=== PATIENT | male | born 1940 | race Caucasian/White ===

== ENCOUNTER → 2020-06-06 | Day surgery (SDC) | payer MEDICARE, OTHER ==
[2020-05-31 13:48] LABS: BASOPHILS % 0.5 % (0.0-1.0); EOSINOPHILS # (AUTO) 0.1 (0.0-0.4); EOSINOPHILS % 2.4 % (0.0-6.0); HEMATOCRIT 35.1 % (38.2-49.6); HEMOGLOBIN 10.7 g/dL (14.0-18.0); LYMPHOCYTES # (AUTO) 1.2 (1.0-3.2); LYMPHOCYTES % 20.6 % (18.0-39.1); MEAN CORPUSCULAR HEMOGLOBIN 27.7 pg (28-32); MEAN CORPUSCULAR HGB CONC 30.5 g/dL (31-35); MEAN CORPUSCULAR VOLUME 90.9 fL (81-99); MONOCYTES # (AUTO) 0.8 (0.2-0.8); MONOCYTES % 14.1 % (4.4-11.3); NEUTROPHILS # (AUTO) 3.7 (2.1-6.9); NEUTROPHILS % 62.1 % (38.7-80.0); PLATELET COUNT 253 x10e3/uL (140-360); RED BLOOD COUNT 3.86 x10e6/uL (4.3-5.7); RED CELL DISTRIBUTION WIDTH 14.6 % (11.7-14.4)
[~2020-06-06] MED LIST: ALLEGRA ALLERG180 MG PO; ASPIRIN81 MG PO; ATORVASTATIN CA20 MG PO; CLOPIDOGREL75 MG PO; CYMBALTA30 MG PO; FENOFIBRATE145 MG PO; FERROUS SULFAT325 MG PO; FINASTERIDE5 MG PO; FLAXSEED OIL1000 MG PO; FLOMAX0.4 MG PO; GABAPENTIN300 MG PO; GLYCOPYRROLATE INJ 0.2 MG/ML VIAL ONE; JANUVIA100 MG PO; LEVOCETIRIZINE D5 MG PO; LIDOCAINE HCL 2% LOCAL INJ 5 ML SDV VIAL INJ ONE; METOPROLOL SUCC25 MG PO; MULTI-VITAMIN1 EACH PEG; PRANDIN1 MG PO; PROPOFOL IV EMULSION 10 MG/ML 20 ML VIAL ONE; SEROQUEL25 MG PO; TOUJEO SOL300 UNIT/1 SC; TRUJEO SQ; VASOTEC5 MG PO; VITAMIN C500 MG PO; VITAMIN D32000 UNI1 PO
[2020-06-06 09:45] VITALS: BP 117/66
== END | disposition home or self-care (01) ==
LOC: OR 07:03
PROVIDERS: ATTEND Internal Medicine Gastroenterology
DX: C16.0 Malignant neoplasm of cardia (principal); K29.50 Unspecified chronic gastritis without bleeding; K58.9 Irritable bowel syndrome, unspecified; Z71.3 Dietary counseling and surveillance; E78.5 Hyperlipidemia, unspecified; G47.33 Obstructive sleep apnea (adult) (pediatric); N40.0 Benign prostatic hyperplasia without lower urinary tract symptoms; E11.9 Type 2 diabetes mellitus without complications; I10 Essential (primary) hypertension; E66.9 Obesity, unspecified; I25.810 Atherosclerosis of coronary artery bypass graft(s) without angina pectoris; I25.2 Old myocardial infarction; F32.9 Major depressive disorder, single episode, unspecified; Z79.02 Long term (current) use of antithrombotics/antiplatelets; Z79.82 Long term (current) use of aspirin; Z79.84 Long term (current) use of oral hypoglycemic drugs; Z79.4 Long term (current) use of insulin; Z68.36 Body mass index [BMI] 36.0-36.9, adult; Z95.1 Presence of aortocoronary bypass graft
CPT/HCPCS: 36415 ×2; 43239; 82948; 85025; 93005; J2001; J2704; U0002

== ENCOUNTER 2020-07-31 06:28 | Observation (INO) | payer MEDICARE, OTHER ==
[2020-07-26 12:34] LABS: BASOPHILS % 0.5 % (0.0-1.0); EOSINOPHILS # (AUTO) 0.1 (0.0-0.4); EOSINOPHILS % 2.3 % (0.0-6.0); HEMATOCRIT 34.6 % (38.2-49.6); HEMOGLOBIN 10.4 g/dL (14.0-18.0); LYMPHOCYTES % 17.5 % (18.0-39.1); MEAN CORPUSCULAR HEMOGLOBIN 27.2 pg (28-32); MEAN CORPUSCULAR HGB CONC 30.1 g/dL (31-35); MEAN CORPUSCULAR VOLUME 90.6 fL (81-99); MONOCYTES # (AUTO) 0.8 (0.2-0.8); MONOCYTES % 13.5 % (4.4-11.3); NEUTROPHILS # (AUTO) 3.7 (2.1-6.9); NEUTROPHILS % 65.7 % (38.7-80.0); PLATELET COUNT 277 x10e3/uL (140-360); RED BLOOD COUNT 3.82 x10e6/uL (4.3-5.7); RED CELL DISTRIBUTION WIDTH 14.2 % (11.7-14.4)
[2020-07-26 12:53] LABS: ALANINE AMINOTRANSFERASE 19 IU/L (0-55); ALBUMIN 4.4 g/dL (3.5-5.0); ALBUMIN/GLOBULIN RATIO 1.6 (0.8-2.0); ALKALINE PHOSPHATASE 51 IU/L (40-150); ANION GAP 16.4 mmol/L (8-16); BLOOD UREA NITROGEN 17 mg/dL (7-26); BUN/CREATININE RATIO 15 (6-25); CALCIUM 8.7 mg/dL (8.4-10.2); CARBON DIOXIDE 20 mmol/L (22-29); CHLORIDE 106 mmol/L (98-107); CREATININE, SERUM 1.16 mg/dL (0.72-1.25); EST GLOMERULAR FILTRATION RATE > 60 ML/MIN (60-); GLUCOSE 163 mg/dL (74-118); POTASSIUM 4.4 mmol/L (3.5-5.1); SODIUM 138 mmol/L (136-145)
--- NOTE | 2020-07-26 13:06 | Diagnostic Imaging Report ---
EXAMINATION: CHEST 2 VIEWS INDICATION: Preop for esophageal surgery. Esophageal cancer. ^20200726 ^1250 ^PRE OP COMPARISON: None FINDINGS: TUBES and LINES: Sternal wires. LUNGS: Lungs are well inflated. Lungs are clear. There is no evidence of pneumonia or pulmonary edema. PLEURA: No pleural effusion or pneumothorax. HEART AND MEDIASTINUM: The cardiomediastinal silhouette is unremarkable. BONES AND SOFT TISSUES: No acute osseous lesion. Soft tissues are unremarkable. UPPER ABDOMEN: No free air under the diaphragm. IMPRESSION: No acute thoracic abnormality. Signed by: Dr. Jarvis Jhaveri M.D. on 07/26/2020 1:03 PM
[~2020-07-31] VITALS: Ht 167.6 cm; Wt 96.2 kg
[~2020-07-31 06:28] MED LIST changes: +DIAZEPAM5 MG PO; -GLYCOPYRROLATE INJ 0.2 MG/ML VIAL ONE; -LIDOCAINE HCL 2% LOCAL INJ 5 ML SDV VIAL INJ ONE; +OMEPRAZOLE40 MG PO; -PROPOFOL IV EMULSION 10 MG/ML 20 ML VIAL ONE
[2020-07-31] MEDS ORDERED: BUPIVACAINE 0.25% 30ML SDV INJ ONE (08:53)
[2020-07-31] MEDS ORDERED: LIDOCAINE HCL 1% LOCAL INJ 20 ML VIAL ONE (08:53)
[2020-07-31] MEDS ORDERED: HEPARIN SOD (PORCINE) 5,000 UNIT/ML VIAL ONE (08:54)
[2020-07-31] MEDS ORDERED: SODIUM CHLORIDE 0.9% 500ML 500 ML ONE (08:54)
[2020-07-31] MEDS ORDERED: ONDANSETRON HCL INJ 2MG/ML 2ML 2 MG/ML VIAL IV PRN (11:45)
[2020-07-31] MEDS: INSULIN REGULAR, HUMAN 100 UNIT/1 ML 3ML VIAL SQ SCH ×3 (12:00→23:39)
[2020-07-31] MEDS ORDERED: SEVOFLURANE INHAL SOLN 250 ML PEN BTL ONE (12:30)
[2020-07-31] MEDS ORDERED: DEXAMETHASONE SOD PHOS INJ 4 MG/ML VIAL ONE (12:30)
[2020-07-31] MEDS ORDERED: ONDANSETRON HCL INJ 2MG/ML 2ML 2 MG/ML VIAL ONE (12:30)
[2020-07-31] MEDS ORDERED: LIDOCAINE HCL 2% LOCAL INJ 5 ML SDV VIAL INJ ONE (12:30)
[2020-07-31] MEDS ORDERED: ROCURONIUM BROMIDE 10 MG/ML 5ML VIAL IV ONE (12:30)
[2020-07-31] MEDS ORDERED: CEFAZOLIN SOD 1 GM VIAL ONE (12:30)
[2020-07-31] MEDS ORDERED: PROPOFOL IV EMULSION 10 MG/ML 20 ML VIAL ONE (12:30)
--- OUTSIDE RECORDS SUMMARY | 2020-07-31 12:39 | XMS REPORT | Continuity of Care Document ---
Author Author [facility] Organization [facility] Address [address] [place] [address] Phone Unavailable Care Team Providers Care Pediatric Medical Assistant Name Role Phone Victorino LYLES, Ravi Lin PCP Levar PALACIOS Attphys Unavailable Doctor Unassigned, Name No Attphys Unavailable Johanny Cronin Attphys Eunice Ann MD Attphys Payers Payer Name Policy Type Policy Number Effective Date Expiration Date S ource Problems Condition Name Condition Details Condition Category Status Onset Date Resolution Date Last Treatment Date Treating Clinician Comments Source Esophagitis Esophagitis Disease Active 2017-02-02 00:00:00 Choco Rastafarian Diaphragmatic hernia without obstruction and without g angrene Diaphragmatic hernia without obstruction and without gangrene Disease Active 2017-02-02 00:00:[address] Diverticulosis large intestine w/o perforation or absc ess w/o bleeding Diverticulosis large intestine w/o perforation or abscess w/o bleeding Disease Active 2017-02-02 00:00:00 Elmo madden Rastafarian Internal hemorrhoids Internal hemorrhoids Disease Active 00:00:00 Choco Fan Iron deficiency anemia Iron deficiency anemia Disease Active 2017-02-02 00:00:[address] PTCA Status PTCA Status Active Problem 06/28/2014 Andrew Esparza Problem Active 2014-06-28 02:51:26 [facility] Kp 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 Problem 06/28/2014 Andrew Esparza Problem Active 20 28-06-14 02:51:26 Cleopatra Goodrich Hypercholesterolemia Hype rcholesterolemia Active Problem 06/28/2014 Andrew Esparza Problem Active 2014-06-28 02:51:26 Cleopatra Goodrich Angina Taisha na Active Problem 06/28/2014 Andrew Esparza Problem Active 2014-06-28 02:51:26 Cleopatra Goodrich 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 Atherosclerosis of [place] arteries of the extremities with intermittent claudication Active Problem 06/28/2014 Andrew Esparza Problem Active 2014-06-28 02:51:26 Yonis Goodrich Encounter for pre-operative cardiovascular clearance Encounter for pre-operative cardiovascular clearance Active Problem 06/28/2014 Andrew Esparza Problem Active 2014-06-28 02:51:26 Cleopatra Goodrich Shortness of breath Shor tness of breath Active Problem 06/28/2014 Andrew Esparza Problem Active 2014-06-28 02:51:26 [facility] Ab[facility] Abno rmal EKG Active Problem 06/28/2014 Andrew Esparza Problem Active 2014-06-28 02:51:26 Cleopatra Goodrich CAD, Graft CAD, Graft Active Problem 06/28/2014 Andrew Esparza Problem Active 2014-06-28 02:51:26 Cleopatra Goodrich HTN, Benign HTN, Benign Active Problem 06/28/2014 Andrew Esparza Problem Active 2014-06-28 02:51:26 Cleopatra Goodrich Allergies, Adverse Reactions, Alerts Allergy Name Allergy Type Status Severity Reaction(s) Onset Date Inacti ve Date Treating Clinician Comments Source No Known Allergies DA Active U 2016-04-20 00:00:00 [facility] N.K.Christiano.A. N.K.D.A. Active Info Not Available 2014-06-06 00:00:00 Cleopatra Goodrich Family History Family Member Diagnosis Comments Start Date Stop Date Source Natural father Heart disease Choco Rastafarian Natural mother Diabetes [facility]ist Natural mother Heart disease Wilhelm Rastafarian Unknown Family Member Family History 2014-06-28 02:51:26 2 02:51:26 [facility] Social History Social Habit Start Date Stop Date Quantity Comments Source History of tobacco use Current smoker Choco Fan Sex Assigned At Katey huston Rastafarian Alcohol intake 2017-02-02 00:00:00 2017-02-02 00:00:00 Current non-drinker of alcohol (finding) Choco Fan Smoking 2014-06-27 00:00:00 2014-06-27 00:00:00 [facility] Smoking Status Start Date Stop Date Source Former smoker 2017-02-02 00:00:00 2017-02-02 00:00:00 Choco Fan Medications Ordered Medication Name Filled Medication Name Start Date Stop Da te Current Medication? Ordering Clinician Indication Dosage Frequency Signature (SIG) Comments Components Source tamsulosin (FLOMAX) 0.4 mg capsule,extended release 24hr 2017-02-02 11:13:27 Yes .4mg QD Take 0.4 mg by mouth daily. Choco Fan DULoxetine (CYMBALTA) 60 MG capsule 2017-02-02 11:13:27 Yes 60mg QD Take 60 mg by mouth daily. Choco Fan QUEtiapine (SEROquel) 50 MG tablet 2017-02-02 11:13:27 Yes 50mg QD Take 50 mg by mouth nightly. Choco garcia glimepiride (AMARYL) 4 MG tablet 2017-02-02 11:13:27 Yes 4mg QD Take 4 mg by mouth daily before breakfast. Kimberly Fan metoprolol tartrate (LOPRESSOR) 25 mg tablet 2017-02-02 11:13:27 Yes 25mg Q.5D Take 25 mg by mouth 2 (two) times a day. Choco Fan enalapril (VASOTEC) 5 MG tablet 2017-02-02 11:13:27 Yes 5mg QD Take 5 mg by mouth daily. Choco Fan ASCORBATE CALCIUM (VITAMIN C ORAL) 2017-02-02 11:13:27 Yes Take by mouth. Choco Fan ferrous sulfate 325 (65 FE) MG tablet 2017-02-02 11:13:27 Y es 325mg QD Take 325 mg by mouth daily with breakfast. Choco Fan aspirin (ECOTRIN) 81 MG enteric coated tablet 2017-02-02 11:13:2 7 Yes 81mg QD Take 81 mg by mouth daily. Sujey Fan multivitamin with minerals tablet 2017-02-02 11:13:27 Yes 1{tbl} QD Take 1 tablet by mouth daily. Choco Shanks st flaxseed oil oil 2017-02-02 11:13:27 Yes Choco Fan CLEMASTINE FUMARATE (ALLERGY RELIEF, CLEMASTINE, ORAL) 2017-02-02 11:13:27 Yes Take by mouth. Choco Harden ethodist coenzyme Q10 200 mg capsule 2017-02-02 11:13:27 Yes 200mg QD Take 200 mg by mouth daily. Choco Fan clopidogrel (PLAVIX) 75 mg tablet 2016-12-10 00:00:00 Yes Choco Fan finasteride (PROSCAR) 5 mg tablet 2016-11-25 00:00:00 Yes Choco Fan atorvastatin (LIPITOR) 40 MG tablet 2016-11-20 00:00:00 Yes Choco Fan Lyrica 2014-06-28 02:51:26 Yes Andrew Jeroudi 1 capsule [facility] Tamsulosin HCl 2014-06-28 02:51:26 Yes Andrew Jeroudi 1 capsule 30 minutes after the same meal each day [facility] Kp Amaryl 2014-06-28 02:51:26 Yes Candelarioamed Jeroudi 1 tablet [facility] Crestor 2014-06-28 02:51:26 Yes Andrew Jeroudi 1 tablet [facility] Metformin HCl 2014-06-28 02:51:26 Yes Candelarioamed Jeroudi 1 tablet [facility] Cymbalta 2014-06-28 02:51:26 Yes Candelarioamed Jeroudi 1 capsule [facility] Clopidogrel Bisulfate 2014-06-28 02:51:26 Yes Andrew Je roudi 1 tablet [facility] Potassium Chloride 2014-06-28 02:51:26 Yes Candelarioamed Jeroudi 1 capsule [facility] Furosemide 2014-06-28 02:51:26 Yes Candelarioamed Jeroudi 1 tablet [facility] Flaxseed Oil 2014-06-28 02:51:26 Yes Candelarioamed Jeroudi 1 tablet [facility] Aspirin Adult Low Strength 2014-06-28 02:51:26 Yes Eyad ed Jeroudi 1 tablet [facility] Zolpidem Tartrate 2014-06-28 02:51:26 Yes Andrew Peted i 1 tablet at bedtime as needed [facility] Finasteride 2014-06-28 02:51:26 Yes Candelarioamed Jeroudi 1 tablet [facility] Centrum Silver 2014-06-28 02:51:26 Yes Andrew Lindobelindalucas as directed [facility] Enalapril 2014-03-15 00:00:00 Yes Andrew Esparza one tab [facility] Vital Signs Vital Name Observation Time Observation Value Comments Source Weight 2014-06-06 21:00:00 [facility] Height 2014-06-06 21:00:00 [facility] Temperature Oral (F) 2014-06-06 21:00:00 96.9 F [facility] Heart Rate 2014-06-06 21:00:00 [facility] Diastolic (mm Hg) 2014-06-06 21:00:00 [facility] [place] Systolic (mm Hg) 2014-06-06 21:00:00 Yonis [facility] [place] Procedures This patient has no known procedures. Plan of Care Planned Activity Planned Date Details Comments Source Future Scheduled Test 2020-07-16 00:00:00 INFLUENZA VACCINE [code = INFLUENZA VACCINE] [facility] Future Scheduled Test 2006 00:00:00 65+ PNEUMOCOCCAL V ACCINE (1 of 2 - PCV13) [code = 65+ PNEUMOCOCCAL VACCINE (1 of 2 - PCV13)] [facility] Future Scheduled Test 1991 00:00:00 SHINGLES VACCINES (#1) [code = SHINGLES VACCINES (#1)] [facility] Encounters Start Date/Time End Date/Time Encounter [facility] ID Source 2020-07-25 00:00:00 2020-07-25 00:00:00 Orders Only D octor Unassigned, [place] [id number] 2020-07-23 09:47:40 2020-07-23 23:59:00 Hospital Encounter [id number] 2020-07-23 09:47:27 2020-07-23 23:59:00 Hospital Encounter [place] [id number] 2020-07-19 00:00:00 2020-07-19 00:00:00 Orders Only D octor Unassigned, [place] [facility] [id number] 2020-07-17 00:00:00 2020-07-17 00:00:00 Orders Only D octor Unassigned, [place] [facility] [id number] 2020-07-17 00:00:00 2020-07-17 00:00:00 Telephone [facility] [id number] 2020-07-15 09:01:22 2020-07-15 09:16:22 Office Visit Tyrese Banks [facility] [id number] 2014-06-06 16:00:00 2014-06-06 16:00:00 [place] [id number] [employer] Results Test Description Test Time Test Comments Results Result Comments Source CHEST 2 VIEWS 2020-07-26 13:02:00 [facility] [address] [place] [address] Patient Name: NANY BERTRAND MR #: [id number] : 1940 Age/Sex: 80/M Req #: [id number] Adm Physician: Ordered by: HERBER PALACIOS MD Report #: [id number] Location: OR Room/Bed: Procedure: [id number] DX/CHEST 2 VIEWS Exam Date: 07/26/20 Exam Time: 1250 REPORT STATUS: Signed EXAMINATION: CHEST 2 VIEWS INDICATION: Preop for esophageal surgery. Esophageal cancer. 20200726 125 PRE OP COMPARISON: None FINDINGS: TUBES and LINES: Sternal wires. LUNGS: Lungs are well inflated. Lungs are clear. There is no evidence of pneumonia or pulmonary edema. PLEURA: No pleural effusion or pneumothorax. HEART AND MEDIASTINUM: The cardiomediastinal silhouette is unremarkable. BONES AND SOFT TISSUES: No acute osseous lesion. Soft tissues are unremarkable. UPPER ABDOMEN: No free air under the diaphragm. IMPRESSION: No acute thoracic abnormality. Signed by: Dr. Daniel Jhaveri M.D. on 07/26/2020 1:03 PM Dictated By: DANIEL JHAVERI MD, MD 1303 Transcribed By: JATIN on 07/26/20 1303 COPY TO: HERBER PALACIOS MD GLUBED 2020-07-03 07:39:00 Test Item GLUBED (test code = GLUBED) 114 MG/DL 70-110 H Performed by certified projection welding machine operator at [facility] [id number] 06:14:00* Test Item Value Reference Range Interpretation Comments GLUBED (test code = GLUBED) 132 MG/DL 70-110 H Performed by certified projection welding machine operator at [facility] Novel Coronavirus 2019 [id number] 04:32:00* Test Item Value Reference Range Interpretation Comments Novel Coronavirus 2019 Inhouse (test code = COVNONPUI) Negative Negative - XR CHEST 2 [id number] 14:26:00 FAX: Rosalinda Gupta MD [phone] [place]: St: PRE FAX: Cindy Panda N Name: NANY BERTRAND [facility] [place] : 1940 Age/S: 80/M [address] [place] [address] Unit #: [id number] Loc: [place] [address] Phys: Cindy Panda NP Acct: [id number] Dis Date: Status: PRE SDC PHONE #: [phone] Exam Date: 07/01/2020 1423 FAX #: [phone] Reason: PREOP- CARCINOMA OF STOMACH EXAMS: CPT CODE: [id number] XR CHEST 2 V 50107 CLINICAL HISTORY: PREOP- CARCINOMA OF STOMACH COMPARISON: April 17, 2016 PA and lateral films of the chest demonstrate sternotomy sutures. Cardiac silhouette is stable. Lung hodgson are clear. No evidence of pneumonia or congestive failure is seen. Regional skeletal structures demonstrate no acute abnormality. IMPRESSION: No evidence of pneumonia or congestive failure is seen. at 1426 Reported and signed by: Chris Arreola M.D. CC: Rosalinda Kelly MD; Cindy Panda NP Technologist: RT Radha(Allen) Trnscrd Date/Time/By: 07/01/2020 (2272) : By: Renetta Orig Print D/T: S: 07/01/2020 (0412) PAGE 1 Signed Report BASIC METABOLIC [id number] 13:31:00* Test Item Value Reference Range Interpretation Comments SODIUM (test code = NA) 139 mEq/L 134-147 N POTASSIUM (test code = K) 4.4 mEq/L 3.4-5.0 N CHLORIDE (test code = CL) 105 mEq/L 100-108 N CARBON DIOXIDE (test code = CO2) 27 mEq/L 21-33 N ANION GAP (test code = GAP) 12 0-20 N GLUCOSE (test code = GLU) 115 mg/dL 70-110 H BLOOD UREA NITROGEN (test code = BUN) 17 mg/dL 7-18 N GLOMERULAR FILTRATION RATE (test code = GFR) 64.6 70-80 L Units of measure = ml/min/1.73 m2 CREATININE (test code = CREAT) 1.1 mg/dL 0.6-1.3 N CALCIUM (test code = CA) 8.5 mg/dL 8.0-10.5 N CBC W/AUTO [id number] 13:01:00* Test Item Value Reference Range Interpretation Comments WHITE BLOOD CELL (test code = WBC) 6.42 x10 3/uL 4.5-11.0 N RED BLOOD CELL (test code = RBC) 3.08 x10 6/uL 4.00-5.60 L HEMOGLOBIN (test code = HGB) 8.8 g/dL 12.5-16.9 L HEMATOCRIT (test code = HCT) 28.8 % 37.5-50.7 L MEAN CELL VOLUME (test code = MCV) 93.5 fL 81.0-99.0 N MEAN CELL HGB (test code = MCH) 28.6 pg 27.0-33.0 N MEAN CELL HGB CONCETRATION (test code = MCHC) 30.6 g/dL 33.0-37. 0 L RED CELL DISTRIBUTION WIDTH CV (test code = RDW) 14.5 % 11.5- 14.5 N RED CELL DISTRIBUTION WIDTH SD (test code = RDW-SD) 49.6 fL 37 .0-54.0 N PLATELET COUNT (test code = PLT) 294 x10 3/uL 150-400 N MEAN PLATELET VOLUME (test code = MPV) 9.0 fL 7.0-9.0 N NEUTROPHIL % (test code = NT%) 68.3 % 56.0-77.0 N IMMATURE GRANULOCYTE % (test code = IG%) 0.6 % 0.0-2.0 N LYMPHOCYTE % (test code = LY%) 17.6 % 14.0-32.0 N MONOCYTE % (test code = MO%) 10.6 % 4.8-9.0 H EOSINOPHIL % (test code = EO%) 2.3 % 0.3-3.7 N BASOPHIL % (test code = BA%) 0.6 % 0.0-2.0 N NUCLEATED RBC % (test code = NRBC%) 0.0 % 0-0 N NEUTROPHIL # (test code = NT#) 4.38 x10 3/uL 2.0-7.6 N IMMATURE GRANULOCYTE # (test code = IG#) 0.04 x10 3/uL 0.00-0.03 H LYMPHOCYTE # (test code = LY#) 1.13 x10 3/uL 1.0-3.8 N MONOCYTE # (test code = MO#) 0.68 x10 3/uL 0.1-0.8 N EOSINOPHIL # (test code = EO#) 0.15 x10 3/uL 0.0-0.2 N BASOPHIL # (test code = BA#) 0.04 x10 3/uL 0.0-0.2 N NUCLEATED RBC # (test code = NRBC#) 0.00 x10 3/uL 0.0-0.1 N MANUAL DIFF REQUIRED (test code = MDIFF) NO
--- OUTSIDE RECORDS SUMMARY | 2020-07-31 12:39 | XMS REPORT | Clinical Summary ---
Author Author [facility] Organization [place] [facility] Address Unknown Phone Unavailable Care Team Providers Care Water Fitness Instructor Name Role Phone Riley Gleason MD PCP Allergies No Known Allergies Medications End Date Status Medication Sig Dispensed Refills Start Date Active atorvastatin (LIPITOR) 40 0 11/20/201 MG tablet 7 Active clopidogrel (PLAVIX) 75 0 12/10/201 mg tablet 7 Active finasteride (PROSCAR) 5 0 11/25/201 mg tablet 7 Active tamsulosin (FLOMAX) 0.4 Take 0.4 mg 0 mg capsule,extended by mouth release 24hr daily. Active DULoxetine (CYMBALTA) 60 Take 60 mg by 0 MG capsule mouth daily. Active QUEtiapine (SEROquel) 50 Take 50 mg by 0 MG tablet mouth nightly. Active glimepiride (AMARYL) 4 MG Take 4 mg by 0 tablet mouth daily before breakfast. Active metoprolol tartrate Take 25 mg by 0 (LOPRESSOR) 25 mg tablet mouth 2 (two) times a day. Active enalapril (VASOTEC) 5 MG Take 5 mg by 0 tablet mouth daily. Active ASCORBATE CALCIUM Take by 0 (VITAMIN C ORAL) mouth. Active ferrous sulfate 325 (65 Take 325 mg 0 FE) MG tablet by mouth daily with breakfast. Active aspirin (ECOTRIN) 81 MG Take 81 mg by 0 enteric coated tablet mouth daily. Active multivitamin with Take 1 tablet 0 minerals tablet by mouth daily. Active flaxseed oil oil 0 Active CLEMASTINE FUMARATE Take by 0 (ALLERGY RELIEF, mouth. CLEMASTINE, ORAL) Active coenzyme Q10 200 mg Take 200 mg 0 capsule by mouth daily. Active Problems Problem Noted Date Esophagitis 02/02/2017 Diaphragmatic hernia without obstruction and without gangrene 02/02/2017 Diverticulosis large intestine w/o perforation or abs cess w/o bleeding 02/02/2017 Internal hemorrhoids 02/02/2017 Iron deficiency anemia 02/02/2017 Family History Medical History Relation Name Comments Heart disease Father Diabetes Mother Heart disease Mother Relation Name Status Comments Father Mother Social History Date Tobacco Use Types Packs/Day Years Used Quit: 1996 Former Smoker Cigarettes Smokeless Tobacco: Never Used Drinks/Week oz/Week Comments Alcohol Use No Sex Assigned at Date Recorded Not on file Industry Job Start Date Occupation Not on file Not on file Not on file Travel End Travel History Travel Start No recent travel history available. Last Filed Vital Signs Not on file Plan of Treatment Health Maintenance Due Date Last Done Comments SHINGLES VACCINES (#1) 1991 65+ PNEUMOCOCCAL VACCINE 2006 (1 of 2 - PCV13) INFLUENZA VACCINE 07/16/2020 Results Not on fileafter 07/31/2019 Insurance Type Payer Benefit Subscriber ID Effective Phone Address Plan / Dates Group [facility] MEDICARE AARP xxxxxxxxx 2016-P MEDICARE resent COMPLETE [facility] Advance Directives For more information, please contact: [phone] Patient Trust Administrator Explanation Type Date Recorded Advance Directives, Living Will and Medical Power of Pot Feeder Advance Directives, 12/31/2016 10:12 AM Living Will and Medical Power of Pot Fe[place] Advance Directives, 01/05/2017 10:15 AM Living Will and Medical Power of Pot Feeder
--- OUTSIDE RECORDS SUMMARY | 2020-07-31 12:39 | XMS REPORT | Continuity of Care Document ---
Author Author Surface [employer] NANY Medel [employer] Address Unknown Phone Unavailable Care Team Providers Care Electronics Parts Sales Representative Name Role Phone [employer] Unavailable Un available Problems Problem Status Onset Date Classification Date Reported Comments Source PTCA Status Active Problem 06/28/2014 Andrew Esparza Mitral valve disorders Active Problem 06/28/2014 Andrew Esparza Hypercholesterolemia Active Problem 06/28/2014 Andrew Esparza Angina Active Problem 06/28/2014 Andrew Esparza Atherosclerosis of [place] arteries of th e extremities with intermittent claudication Active Problem 06/28/2014 Andrew Esparza Encounter for pre-operative cardiovascular clearance Active Problem 06/28/2014 Andrew Esparza Shortness of breath Active Problem 06/28/2014 Andrew Esparza Abnormal EKG Active Problem 06/28/2014 Andrew Esparza CAD, Graft Active Problem 06/28/2014 Andrew Esparza HTN, Benign Active Problem 06/28/2014 Andrew Esparza Medications Medication Details Route Status Patient Instructions Ordering Provider Order Date Source Enalapril one tab orally Active 5 mg orally daily Vilma 03/15/2014 Andrew Esparza Lyrica 1 capsule Orally Active 75 MG Orally BID Vilma [facility] Sylvia Esparza Tamsulosin HCl 1 capsule 30 mi nutes after the same meal each day Orally Active 0.4 MG Orally Once a day Juan R Walters Amaryl 1 tablet Orally Active 4 mg Orally 1 Tablet AM 1/2 tablet PM Vilma Esparza Crestor 1 tablet Orally Active 20 mg Orally Once a day Vilma Palomino angeliqueedda Esparza Metformin HCl 1 tablet Orally Active 1000 mg Orally Twice a day Vilma Esparza Cymbalta 1 capsule Orally Active 60 MG Orally Once a day Vilma Palomino angeliqueedda Esparza Clopidogrel Bisulfate 1 tablet Orally Active 75 mg Orally Once a day Vilma Esparza Potassium Chloride 1 capsule Orally Active 10 MEQ Orally Once a day Andrew Ward Vilma Furosemide 1 tablet Orally Active 80 MG Orally Once a day [facility] angelique Sylvia Lindopilar Flaxseed Oil 1 tablet Orally Active [facility]ID [facility] Petelucas Aspirin Adult Low Strength 1 t ablet Orally Active 81 MG Orally Once a day Candelario Sylvia Vilma Zolpidem Tartrate 1 tablet at bedtime as needed Orally Active 10 MG Orally Once a day Candelario Sylvia Vilma Finasteride 1 tablet Orally Active 5 MG Orally Once a day [facility] angelique Sylvia Petelucas Centrum Silver as directed Orally Active Orally Once a day [place] Andrew Ward Vilma Allergies, Adverse Reactions, Alerts Substance Category Reaction Severity Reaction type Status Date Reported Comments Source N.K.D.A. Adverse Reaction Info Not Available Adverse Reaction Active 06/06/2014 Candelarioangelique Sylvia Esparza Immunizations No Data Provided for This Section Results No Data Provided for This Section Pathology Reports No Data Provided for This Section Diagnostic Reports No Data Provided for This Section Consultation Notes No Data Provided for This Section Discharge Summaries No Data Provided for This Section History and Physicals No Data Provided for This Section Vital Signs Vital Sign Value Date Comments Source Weight 222 06/06/2014 Andrew Esparza Height 66 0 06/06/2014 Andrew Esparza Temperature Oral (F) 96.9 F 06/06/2014 Andrew Esparza Heart Rate 74 06/06/2014 Andrew Esparza Diastolic (mm Hg) 60 06/06/2014 Andrew Esparza Systolic (mm Hg) 115 06/06/2014 Andrew Esparza Encounters Location Location Details Encounter Type Encounter Number Reason For Visit Attending Provider ADM Date DC Date Status Source Andrew Esparza MD PA Unknown [id number] 06/06/20 14 06/06/2014 Andrew Esparza Procedures No Data Provided for This Section Assessment and Plan No Data Provided for This Section Plan of Care No Data Provided for This Section Social History Social History Date Source Social History ElementQualifiersDate Rep orted Smoking . Status Former Smoker Quit in 2007Jun 27, 2014 Alcohol Use No. Jun 27, 2014 Alcohol Screening: No. Did you have a drink containing alcohol in the past year?: No, Points: 0, Interpretation: Negative Jun 27, 2014 Marital Status: . Jun 27, 2014 Do you drink alcohol? No. Jun 27, 2014 Occupation: . Retired construction Jun 27, 2014 06/27/2014 Andrew Esparza Family History Value Date S ource QualifierDescriptionCommentDate Reported Mother complications of CHF Jun 27, 2014 Father MA, [place] in his 50's Jun 27, 2014 06/28/2014 Andrew Esparza Advance Directives No Data Provided for This Section Functional Status No Data Provided for This Section
--- NOTE | 2020-07-31 13:02 | Operative Report ---
DATE OF PROCEDURE: 07/31/2020 SURGEON: Domenic Lake MD PREOPERATIVE DIAGNOSIS: Esophageal cancer, needing IV access for chemotherapy and GI access for feedings. POSTOPERATIVE DIAGNOSIS: Esophageal cancer, needing IV access for chemotherapy and GI access for feedings. OPERATIONS PERFORMED: Placement of left subclavian venous access port under C-arm guidance and laparoscopic assisted jejunostomy with lysis of adhesions. ASSISTANTS: 1. Reinaldo Lake M.D. 2. SRAVANTHI Carr. ANESTHESIA: General. COMPLICATIONS: None. ESTIMATED BLOOD LOSS: Minimal. DESCRIPTION OF PROCEDURE: With the patient lying in bed in the supine position under good general endotracheal anesthesia and chest were prepped with Betadine solution and draped in the usual manner. A standard left subclavian venipuncture was performed without any difficulty and a guidewire was advanced into the central venous position. Using the C-arm, the left lung was found to be fully expanded and the guidewire was found to be at the level of the superior vena cava. A pocket was then created in the left anterior chest to accept the reservoir. Catheter was then threaded to the subclavian position and cut to the appropriate length. The reservoir and catheter were fully heparinized and the reservoir was then anchored to the anterior chest wall with interrupted sutures of 2-0 silk. The peel-away sheath introducer was then placed over the guidewire and the catheter was threaded through the peel-away sheath. The peel-away sheath was removed. There was good blood return and the reservoir and catheter were fully heparinized. Using the C-arm, the left lung was found to be fully expanded and the tip of the catheter was found to be at the level of the superior vena cava. The wounds were then closed in layers. The subcutaneous tissue was approximated with 3-0 and 4-0 Vicryl and the skin was closed with subcuticular 5-0 Vicryl. Benzoin and Steri-Strips were applied. At this point, the Veress needle was then placed into the umbilicus and pneumoperitoneum was established without any difficulty. A 5 mm trocar was placed through the umbilicus and a 5 mm video laparoscope was placed into the intraabdominal cavity. Laparoscopy at this point revealed there was some adhesions to the right side of the abdomen from the patient's previous laparotomy. Two more 5 mm trocars were then placed in the left side of the abdomen, and the adhesions on the right side have to be taken down as they interfered with we were going to place the jejunostomy feeding tube, these were slowly and carefully taken down and hemostasis was ascertained. Laparoscopy at this point revealed we could see the left lobe of the liver, and this showed no sign of any metastatic spread of disease. There was no sign of any metastatic spread of disease in the bowel or omentum that we could see. The left lobe of the liver could not be visualized as he was totally obstructed from the adhesions of the colon and omentum to the right lobe of the liver and the anterior abdominal wall. At this point, we went ahead and found the ligament of Treitz and the bowel was then identified, the loop just distal to the ligament of Treitz to make sure that it would reach to the anterior abdominal wall without any problems. A small incision was then made in the supraumbilical region, carried down through the subcutaneous tissue and through the fascia and the small opening into the abdomen was done. The loop of bowel reached easily to the anterior abdominal wall. We wanted to do the jejunostomy. A size 18 tube was then placed through the abdominal wall on the right side and a small opening was then made into the jejunum and the catheter was threaded into the jejunum and the balloon was partially filled to make sure that there was no obstruction of the jejunum. After this was done, a pursestring of 2-0 Vicryl was then done around the entrance of the tube into the bowel, and this was further inverted with interrupted 3-0 silk sutures and the jejunum was then tacked to the anterior abdominal wall with interrupted sutures of 2-0 silk. Once this was done, the small incision in the supraumbilical area was closed with a running suture of 0-Vicryl for the fascia. Subcutaneous tissue was approximated with 3-0 Vicryl and the skin was closed with subcuticular 5-0 Vicryl. Laparoscopy was then performed again, and there was absolutely no tension of the jejunal loop. There was no obstruction from either the balloon or the tacking of the jejunum to the anterior abdominal wall. The pneumoperitoneum was then evacuated and all the trocars were removed under direct vision. The jejunostomy tube was then tacked to the anterior abdominal wall with 2-0 silk sutures, and all of the other trocar sites were closed with subcuticular 5-0 Vicryl. Benzoin, Steri-Strips, and dressings were applied. The sponge, lap, and needle count was correct. The patient tolerated both the procedures well and returned to the recovery room in stable condition. MD MELVA Hinojosa/KUHSHBU /[id number]
[2020-07-31 13:07] VITALS: BP 185/69
[2020-07-31 14:03] VITALS: BP 185/69
[2020-07-31] MEDS: PANTOPRAZOLE 40 MG 10ML VIAL IV SCH (14:45)
[2020-07-31] MEDS: SODIUM CHLORIDE 0.9% 1000ML 1,000 ML IV SCH (14:45)
[2020-07-31] MEDS ORDERED: FENTANYL CITRATE/PF 100MCG/2 ML INJ ONE (15:12)
[2020-07-31 15:42] VITALS: BP 143/74
[2020-07-31] MEDS: CEFAZOLIN SOD 1 GM/NS 50ML 50 ML IV SCH (17:58)
[2020-07-31] MEDS: HYDROMORPHONE 1MG/1ML INJ IV PRN ×2 (17:59→21:10)
[2020-07-31 19:35] VITALS: BP 156/69
[2020-07-31 19:57] VITALS: BP 156/69
--- NOTE | 2020-07-31 20:20 | NUR ---
SPOKE WITH MD Deepika PALACIOS, NEW ORDERS ENTERED. OKAY TO HAVE SMALL SIPS OF WATER WITH MEDS.
[2020-07-31] MEDS ORDERED: DEXTROSE 50% SYRINGE 50 ML IV PRN (20:30)
[2020-07-31] MEDS ORDERED: HYDRALAZINE HCL 20 MG/ML VIAL IV PRN (20:30)
[2020-07-31] MEDS ORDERED: ENALAPRIL MALEATE 5 MG TAB PO SCH (21:00)
[2020-07-31 23:44] VITALS: BP 151/67
[2020-08-01] MEDS: SODIUM CHLORIDE 0.9% 1000ML 1,000 ML IV SCH ×2 (00:37→08:00)
[2020-08-01] MEDS: CEFAZOLIN SOD 1 GM/NS 50ML 50 ML IV SCH (00:37)
[2020-08-01] MEDS: HYDROMORPHONE 1MG/1ML INJ IV PRN ×2 (04:00→12:29)
[2020-08-01 04:17] VITALS: BP 150/65
[2020-08-01 05:10] LABS: BASOPHILS % 0.3 % (0.0-1.0); EOSINOPHILS # (AUTO) 0.1 (0.0-0.4); EOSINOPHILS % 1.6 % (0.0-6.0); HEMATOCRIT 33.5 % (38.2-49.6); HEMOGLOBIN 10.2 g/dL (14.0-18.0); LYMPHOCYTES # (AUTO) 1.1 (1.0-3.2); LYMPHOCYTES % 14.4 % (18.0-39.1); MEAN CORPUSCULAR HEMOGLOBIN 27.1 pg (28-32); MEAN CORPUSCULAR HGB CONC 30.4 g/dL (31-35); MEAN CORPUSCULAR VOLUME 89.1 fL (81-99); MONOCYTES # (AUTO) 1.1 (0.2-0.8); MONOCYTES % 14.3 % (4.4-11.3); NEUTROPHILS # (AUTO) 5.3 (2.1-6.9); NEUTROPHILS % 68.9 % (38.7-80.0); PLATELET COUNT 239 x10e3/uL (140-360); RED BLOOD COUNT 3.76 x10e6/uL (4.3-5.7); RED CELL DISTRIBUTION WIDTH 14.1 % (11.7-14.4)
[2020-08-01 05:26] LABS: BLOOD UREA NITROGEN 14 mg/dL (7-26); BUN/CREATININE RATIO 14 (6-25); CALCIUM 8.4 mg/dL (8.4-10.2); CARBON DIOXIDE 24 mmol/L (22-29); CHLORIDE 106 mmol/L (98-107); CREATININE, SERUM 1.02 mg/dL (0.72-1.25); EST GLOMERULAR FILTRATION RATE > 60 ML/MIN (60-); GLUCOSE 107 mg/dL (74-118); SODIUM 142 mmol/L (136-145)
[2020-08-01] MEDS: INSULIN REGULAR, HUMAN 100 UNIT/1 ML 3ML VIAL SQ SCH ×3 (05:39→17:17)
[2020-08-01 07:26] VITALS: BP 136/57
[2020-08-01 08:00] VITALS: BP 136/57
[2020-08-01] MEDS ORDERED: TAMSULOSIN HCL 0.4 MG CAP PO SCH (09:00)
[2020-08-01] MEDS ORDERED: METOPROLOL SUCCINATE 25 MG TAB XL PO SCH (09:00)
[2020-08-01 11:56] VITALS: BP 165/63
[2020-08-01] MEDS: PANTOPRAZOLE 40 MG 10ML VIAL IV SCH (12:12)
[2020-08-01 15:22] VITALS: BP 135/67
== END 2020-08-01 18:32 | disposition home or self-care (01) ==
LOC: OR 06:28 → INTOOBSV 11:47 → PACU V 11:47 → MED/SURG 12:46
PROVIDERS: ADMIT Surgery; ATTEND Surgery
DX: C15.9 Malignant neoplasm of esophagus, unspecified (principal); K56.52 Intestinal adhesions [bands] with complete obstruction; I10 Essential (primary) hypertension; I25.10 Atherosclerotic heart disease of native coronary artery without angina pectoris; Z95.1 Presence of aortocoronary bypass graft; Z11.59 Encounter for screening for other viral diseases; G47.33 Obstructive sleep apnea (adult) (pediatric)
CPT/HCPCS: 36415 ×3; 36561; 44186; 71046; 77001; 80048; 80053; 82948; 85025 ×2; C1751; C9113 ×2; G0378 ×2; J0690 ×3; J1100; J1170 ×2; J1644; J2001; J2405; J2704; J3010; J7030 ×2; J7040; U0002

== ENCOUNTER → 2021-03-05 | Day surgery (SDC) | payer MEDICARE ==
[2021-03-03 12:12] LABS: BASOPHILS % 0.5 % (0.0-1.0); EOSINOPHILS # (AUTO) 0.2 (0.0-0.4); EOSINOPHILS % 3.1 % (0.0-6.0); HEMATOCRIT 32.8 % (38.2-49.6); LYMPHOCYTES # (AUTO) 0.5 (1.0-3.2); LYMPHOCYTES % 9.9 % (18.0-39.1); MEAN CORPUSCULAR HEMOGLOBIN 28.3 pg (28-32); MEAN CORPUSCULAR HGB CONC 30.5 g/dL (31-35); MEAN CORPUSCULAR VOLUME 92.9 fL (81-99); MONOCYTES % 17.4 % (4.4-11.3); NEUTROPHILS # (AUTO) 3.7 (2.1-6.9); NEUTROPHILS % 68.4 % (38.7-80.0); PLATELET COUNT 297 x10e3/uL (140-360); RED BLOOD COUNT 3.53 x10e6/uL (4.3-5.7)
[2021-03-03 12:28] LABS: ANION GAP 15.9 mmol/L (8-16); CREATININE, SERUM 1.2 mg/dL (0.72-1.25); POTASSIUM 3.9 mmol/L (3.5-5.1)
[~2021-03-05] MED LIST changes: +ALBUTEROL0.63 MG/3 NEB; +BREO ELLIPTA 11 EACH INH; +BUPIVACAINE 0.25% 30ML SDV ONE; +ELIQUIS5 MG PO; +FENTANYL CITRATE/PF 100MCG/2 ML INJ ONE; +FEROSUL325 MG PO; +FUROSEMIDE40 MG PO; +IMODIUM2 MG PO; +LIDOCAINE 1% W/EPINEPHRINE 20 ML VIAL ONE; +MIDAZOLAM HCL 2 MG/2 ML VIAL ONE; +PREVACID15 M1 PO; +QUETIAPINE FUM100 MG PO
[2021-03-05 10:13] VITALS: BP 121/57
== END | disposition home or self-care (01) ==
LOC: OR 06:33
PROVIDERS: ATTEND Surgery
DX: T82.594A Other mechanical complication of infusion catheter, initial encounter (principal); C15.9 Malignant neoplasm of esophagus, unspecified; I49.5 Sick sinus syndrome; E11.22 Type 2 diabetes mellitus with diabetic chronic kidney disease; I13.0 Hypertensive heart and chronic kidney disease with heart failure and stage 1 through stage 4 chronic kidney disease, or unspecified chronic kidney disease; N18.9 Chronic kidney disease, unspecified; I50.9 Heart failure, unspecified; G47.33 Obstructive sleep apnea (adult) (pediatric); J44.9 Chronic obstructive pulmonary disease, unspecified; J84.10 Pulmonary fibrosis, unspecified; I25.810 Atherosclerosis of coronary artery bypass graft(s) without angina pectoris; I48.91 Unspecified atrial fibrillation; Y83.8 Other surgical procedures as the cause of abnormal reaction of the patient, or of later complication, without mention of misadventure at the time of the procedure; Z99.81 Dependence on supplemental oxygen; Z01.810 Encounter for preprocedural cardiovascular examination; Z01.812 Encounter for preprocedural laboratory examination; Z01.818 Encounter for other preprocedural examination; Z20.822 Contact with and (suspected) exposure to COVID-19; Z79.02 Long term (current) use of antithrombotics/antiplatelets; Z79.82 Long term (current) use of aspirin; Z95.1 Presence of aortocoronary bypass graft; Z87.891 Personal history of nicotine dependence
CPT/HCPCS: 36415 ×2; 36590; 71046; 80048; 82948; 85025; 93005; J2250; J3010; U0002

== ENCOUNTER → 2022-12-17 | Day surgery (SDC) | payer MEDICARE, OTHER ==
[2022-12-09 10:59] LABS: BASOPHILS % 0.4 % (0.0-1.0); EOSINOPHILS # (AUTO) 0.1 (0.0-0.4); EOSINOPHILS % 1.3 % (0.0-6.0); HEMATOCRIT 33.4 % (38.2-49.6); HEMOGLOBIN 9.8 g/dL (14.0-18.0); LYMPHOCYTES # (AUTO) 0.3 (1.0-3.2); LYMPHOCYTES % 5.6 % (18.0-39.1); MEAN CORPUSCULAR HEMOGLOBIN 28.6 pg (28-32); MEAN CORPUSCULAR HGB CONC 29.3 g/dL (31-35); MEAN CORPUSCULAR VOLUME 97.4 fL (81-99); MONOCYTES # (AUTO) 0.6 (0.2-0.8); MONOCYTES % 10.3 % (4.4-11.3); NEUTROPHILS # (AUTO) 4.4 (2.1-6.9); PLATELET COUNT 239 x10e3/uL (140-360); RED BLOOD COUNT 3.43 x10e6/uL (4.3-5.7); RED CELL DISTRIBUTION WIDTH 15.3 % (11.7-14.4)
[~2022-12-17] MED LIST changes: +B12 PO; -BUPIVACAINE 0.25% 30ML SDV ONE; -LIDOCAINE 1% W/EPINEPHRINE 20 ML VIAL ONE; +LIDOCAINE HCL 2% LOCAL INJ 5 ML SDV VIAL INJ ONE; +MELATONIN3 MG PO; -MIDAZOLAM HCL 2 MG/2 ML VIAL ONE; +MULTI-VITAMIN1 EACH PO; +PROPOFOL IV EMULSION 10 MG/ML 20 ML VIAL ONE; +vitamin d
[2022-12-17 08:20] VITALS: BP 130/80
== END | disposition home or self-care (01) ==
LOC: OR 05:25
PROVIDERS: ATTEND Internal Medicine Gastroenterology
DX: D50.9 Iron deficiency anemia, unspecified (principal); D12.2 Benign neoplasm of ascending colon; K29.70 Gastritis, unspecified, without bleeding; K21.9 Gastro-esophageal reflux disease without esophagitis; K57.30 Diverticulosis of large intestine without perforation or abscess without bleeding; K64.8 Other hemorrhoids; Z90.3 Acquired absence of stomach [part of]; E11.9 Type 2 diabetes mellitus without complications; G47.30 Sleep apnea, unspecified; I49.9 Cardiac arrhythmia, unspecified; J44.9 Chronic obstructive pulmonary disease, unspecified; E78.5 Hyperlipidemia, unspecified; I25.10 Atherosclerotic heart disease of native coronary artery without angina pectoris; I25.2 Old myocardial infarction; I11.0 Hypertensive heart disease with heart failure; I50.9 Heart failure, unspecified; M06.9 Rheumatoid arthritis, unspecified; M19.90 Unspecified osteoarthritis, unspecified site; Z01.810 Encounter for preprocedural cardiovascular examination; Z01.812 Encounter for preprocedural laboratory examination; Z79.02 Long term (current) use of antithrombotics/antiplatelets; Z79.899 Other long term (current) drug therapy; Z85.01 Personal history of malignant neoplasm of esophagus; Z95.810 Presence of automatic (implantable) cardiac defibrillator; Z95.5 Presence of coronary angioplasty implant and graft
CPT/HCPCS: 36415; 43239; 45378; 85025; 88305; 93005; J2001; J3010